=== PATIENT | female | born 1955 | race African-American/Black ===

== ENCOUNTER 2016-08-03 00:28 | Inpatient (IN) | payer OTHER ==
[~2016-08-03] VITALS: Ht 170.2 cm; Wt 71.4 kg
[2016-08-03 03:52] LABS: BASOPHIL 0.2 % (0-2); EOSINOPHIL 0 % (0-5); HCT 37.3 % (37.0-47.0); HGB 12.1 g/dl (12.5-16.0); LYMPHOCYTE 9.7 % (15-48); MCHC 32.4 g/dL (32.0-36.0); MCV 89.4 fL (78.0-100.0); MONOCYTE 10.1 % (0-12); MPV 8.4 fL (6.0-9.5); PLT 210 K/uL (150-400); RBC 4.17 M/uL (4.20-5.40); RDW 14.7 % (11.5-14.0); WBC 8.6 K/uL (4.0-10.5)
[2016-08-03 04:07] LABS: POTASSIUM 3.8 mmol/L (3.5-5.1)
[2016-08-04 05:20] LABS: HCT 37.3 % (37.0-47.0); HGB 11.9 g/dl (12.5-16.0); MCH 28.8 pg (25.0-31.0); MCHC 31.9 g/dL (32.0-36.0); MCV 90.3 fL (78.0-100.0); MPV 8.6 fL (6.0-9.5); RBC 4.13 M/uL (4.20-5.40); RDW 14.9 % (11.5-14.0); WBC 9.1 K/uL (4.0-10.5)
[2016-08-04 05:35] LABS: CREATININE 1.1 mg/dL (0.5-1.0); POTASSIUM 3.5 mmol/L (3.5-5.1)
[2016-08-05 03:44] LABS: HCT 39.3 % (37.0-47.0); HGB 12.3 g/dl (12.5-16.0); MCH 28.3 pg (25.0-31.0); MCHC 31.3 g/dL (32.0-36.0); MCV 90.6 fL (78.0-100.0); MPV 8.7 fL (6.0-9.5); RBC 4.34 M/uL (4.20-5.40); WBC 6.4 K/uL (4.0-10.5)
[2016-08-05 04:02] LABS: CREATININE 1.1 mg/dL (0.5-1.0); POTASSIUM 3.9 mmol/L (3.5-5.1)
[2016-08-06 04:54] LABS: HCT 37.7 % (37.0-47.0); HGB 11.9 g/dl (12.5-16.0); MCH 28.5 pg (25.0-31.0); MCHC 31.6 g/dL (32.0-36.0); MCV 90.2 fL (78.0-100.0); RBC 4.18 M/uL (4.20-5.40); RDW 14.9 % (11.5-14.0); WBC 4.1 K/uL (4.0-10.5)
[2016-08-06 05:11] LABS: POTASSIUM 4.1 mmol/L (3.5-5.1)
[2016-08-07 04:30] LABS: HCT 37.3 % (37.0-47.0); HGB 11.9 g/dl (12.5-16.0); MCH 28.7 pg (25.0-31.0); MCHC 31.9 g/dL (32.0-36.0); MCV 89.9 fL (78.0-100.0); MPV 8.8 fL (6.0-9.5); RBC 4.15 M/uL (4.20-5.40); RDW 14.6 % (11.5-14.0)
[2016-08-07 04:45] LABS: POTASSIUM 4.1 mmol/L (3.5-5.1)
[2016-08-08 04:52] LABS: HCT 41.1 % (37.0-47.0); HGB 13.3 g/dl (12.5-16.0); MCH 28.6 pg (25.0-31.0); MCHC 32.4 g/dL (32.0-36.0); MCV 88.4 fL (78.0-100.0); MPV 8.6 fL (6.0-9.5); RBC 4.65 M/uL (4.20-5.40); RDW 14.6 % (11.5-14.0); WBC 4.4 K/uL (4.0-10.5)
[2016-08-08 05:03] LABS: POTASSIUM 3.7 mmol/L (3.5-5.1)
[2016-08-08] MEDS ORDERED: BUSPIRONE HCL15 MG PO (11:48)
[2016-08-08] MEDS ORDERED: LOPRESSOR50 MG PO (11:48)
[2016-08-08] MEDS ORDERED: ATIVAN0.5 MG PO (11:48)
[2016-08-08] MEDS ORDERED: MORPHINE SULFAT15 MG PO (11:49)
[2016-08-08] MEDS ORDERED: EFFEXOR XR75 MG PO (11:50)
[2016-08-08] MEDS ORDERED: PRILOSEC20 MG PO (11:50)
[2016-08-08] MEDS ORDERED: ZESTRIL5 MG PO (11:50)
[2016-08-08] MEDS ORDERED: PROTONIX 40MG T40 MG PO (11:51)
[2016-08-08] MEDS ORDERED: ZOFRAN ODT4 MG PO (11:51)
[2016-08-08] MEDS ORDERED: ASPIRIN EC81 MG PO (11:51)
[2016-08-08] MEDS ORDERED: FLEXERIL10 MG PO (11:52)
[2016-08-08] MEDS ORDERED: LIPITOR80 MG PO (11:52)
[2016-08-08] MEDS ORDERED: VOLTAREN100 GM TOP (11:54)
[2016-08-08] MEDS ORDERED: LASIX20 MG PO (11:55)
[2016-08-08] MEDS ORDERED: DICYCLOMINE HCL20 MG PO (11:55)
[2016-08-08] MEDS ORDERED: NEURONTIN300 MG PO (11:55)
[2016-08-08] MEDS ORDERED: ZESTRIL20 MG PO (11:56)
[2016-08-08] MEDS ORDERED: AUGMENTIN 875-1 EACH PO (11:57)
[2016-08-08] MEDS ORDERED: VIBRAMYCIN100 MG PO (11:57)
== END 2016-08-08 12:23 | disposition home or self-care (01) | DRG 189 ==
LOC: FER 00:28 → FTCU 06:44 → FMS 08-05 13:00
PROVIDERS: Emergency Medicine; Internal Medicine; ADMIT Internal Medicine
DX: J96.21 Acute and chronic respiratory failure with hypoxia (principal); J18.9 Pneumonia, unspecified organism; E87.1 Hypo-osmolality and hyponatremia; I50.9 Heart failure, unspecified; R04.2 Hemoptysis; J10.1 Influenza due to other identified influenza virus with other respiratory manifestations; I10 Essential (primary) hypertension; K21.9 Gastro-esophageal reflux disease without esophagitis; Z79.82 Long term (current) use of aspirin; Z79.01 Long term (current) use of anticoagulants; Z90.710 Acquired absence of both cervix and uterus; D64.9 Anemia, unspecified
CPT/HCPCS: 36415; 36600; 71010; 71260; 80048; 82803; 85025; 87040; 87070; 87205; 87450; 87804; 87899; 93005; 94760; J0456; J2405; Q9967

== ENCOUNTER 2020-11-01 12:11 | Emergency (ER) | payer OTHER ==
[~2020-11-01 12:11] MED LIST: ARNUITY ELLIPT50 MCG; ASPIR-LOW81 MG PO; ASPIRIN EC81 MG PO; ATIVAN0.5 MG PO; ATROPINE SULFATE2 ML OU; AUGMENTIN 875-1 EACH PO; BETAMETHASONE D15 GM TOP; BUMEX1 MG PO; BUSPIRONE HCL15 MG PO; CHLORZOXAZONE500 MG PO; DICYCLOMINE HCL20 MG PO; EFFEXOR XR75 MG PO; ENTRESTO 97 MG1 EACH PO; FLEXERIL10 MG PO; LASIX20 MG PO; LIPITOR80 MG PO; LOPRESSOR50 MG PO; MORPHINE SULFAT15 MG PO; NEURONTIN300 MG PO; NORVASC10 MG PO; PRILOSEC20 MG PO; PROTONIX 40MG T40 MG PO; PROVENTIL HFA6.7 GM PO; VENTOLIN HFA IN18 GM PO; VIBRAMYCIN100 MG PO; VOLTAREN100 GM TOP; XARELTO10 MG PO; ZESTRIL20 MG PO; ZESTRIL5 MG PO; ZOFRAN ODT4 MG PO; ZOLOFT100 MG PO; ZOLOFT50 MG PO
[2020-11-01 14:16] LABS: BASOPHIL 0.7 % (0-2); EOSINOPHIL 2.6 % (0-5); LYMPHOCYTE 46.1 % (15-48); MCH 28.7 pg (25.0-31.0); MCHC 31.8 g/dL (32.0-36.0); MCV 90.3 fL (78.0-100.0); MONOCYTE 9.6 % (0-12); NEUTROPHIL 40.7 % (41-80); NRBC 0; PLT 255 K/uL (150-400); RBC 4.87 M/uL (4.20-5.40); RDW 16.3 % (11.5-14.0); WBC 5.7 K/uL (4.0-10.5)
[2020-11-01 14:27] LABS: INR 1.4 (0.9-1.2); PROTHROMBIN TIME 16.3 SECONDS (11.4-13.6)
[2020-11-01 14:30] LABS: BILIRUBIN NEGATIVE (NEGATIVE); BLOOD NEGATIVE Ery/uL (NEGATIVE); CLARITY CLEAR (CLEAR); COLOR YELLOW (YELLOW); GLUCOSE (U) NORMAL (NORMAL); LEUKOCYTES NEGATIVE Leu/uL (NEGATIVE); NITRITE NEGATIVE (NEGATIVE); PROTEIN NEGATIVE (NEGATIVE); SPECIFIC GRAVITY 1.015 (1.001-1.030); UROBILINOGEN 0.2 mg/dL (0.2-1.0)
[2020-11-01 14:43] LABS: ALBUMIN 4.2 g/dL (3.4-5.0); BILIRUBIN - TOTAL 0.4 mg/dL (0.2-1.0); CREATININE 1.3 mg/dL (0.51-0.95); GLOBULIN (CALCULATION) 4.1 g/dL; MAGNESIUM 2.3 mg/dL (1.8-2.4); POTASSIUM 3.8 mmol/L (3.5-5.1); TOTAL PROTEIN 8.3 g/dL (6.4-8.2)
[2020-11-01 15:08] LABS: PRO-BNP 50 pg/mL (<125)
== END 2020-11-01 15:42 | disposition home or self-care (01) ==
LOC: FER 12:11
PROVIDERS: Emergency Medicine
DX: R47.1 Dysarthria and anarthria (principal); R53.1 Weakness; I10 Essential (primary) hypertension; Z20.822 Contact with and (suspected) exposure to COVID-19
CPT/HCPCS: 36415; 70450; 71045; 71250; 80053; 81003; 83735; 83880; 84145; 84484; 85025; 85610; 85730; 93005; U0002